=== PATIENT | male | born 1970 | race Two or more races ===

== ENCOUNTER 2020-03-30 02:15 | Emergency (ER) | payer OTHER ==
[~2020-03-30] VITALS: Ht 167.6 cm; Wt 81.6 kg
[2020-03-30 02:27] VITALS: BP 128/92
[2020-03-30] MEDS ORDERED: BACITRACIN TOP OINT 1 UD PKG TOP ONE (05:30)
== END 2020-03-30 05:56 | disposition home or self-care (01) ==
LOC: ER 02:19 → EDSEX 02:19 → ER 05:56
DX: S01.81XA Laceration without foreign body of other part of head, initial encounter (principal); X58.XXXA Exposure to other specified factors, initial encounter; Y93.89 Activity, other specified; Y92.89 Other specified places as the place of occurrence of the external cause; Y99.8 Other external cause status
CPT/HCPCS: 12001